=== PATIENT | female | born 1940 | race Caucasian/White ===

== ENCOUNTER 2024-02-24 15:25 | Emergency (ER) | payer SELFPAY ==
--- NOTE | ~2024-02-24 | XR_ITS ---
EXAMINATION: XR RIBS, LEFT CLINICAL INFORMATION: rib pain after fall COMPARISON: None available. TECHNIQUE: 3 views of the left ribs were obtained. FINDINGS: Lungs are clear. No consolidation, pneumothorax, or pleural effusion. The cardiomediastinal silhouette and pulmonary vasculature are normal. There appears to be a minimally displaced left third rib fracture anteriorly. XR/XR ribs LT min 3V w CXR1V IMPRESSION: There appears to be a minimally displaced left third rib fracture anteriorly. Electronically signed by: Bryson Purcell MD 02/24/2024 03:55 PM EDT
[2024-02-24 15:26] VITALS: BP 186/78; PULSE 86; RESP 20; TEMP 36.8; O2SAT 96; BMI 22.4
--- NOTE | 2024-02-24 15:28 | ED.FALL ---
HPI - Fall General Chief Complaint: Fall Stated Complaint: fall Time Seen by Provider: 02/24/24 17:24 Source: patient, family, RN notes reviewed and old records reviewed Mode of arrival: wheelchair History of Present Illness ED Provider: Gabbie Gregory PA-C [facility] Narrative: 83-year-old female with no significant past medical history presenting to the ED complaining of left anterior lateral rib/chest wall tenderness s/p mechanical trip and fall on a rug a few days ago. Denies symptoms prior to fall including lightheadedness/dizziness. Denies head trauma or LOC. Admits pain worse with deep breathing/movement. Denies anticoagulation use. Denies neck/back pain, abdominal pain, nausea/vomiting MD complaint: fall Related Data Previous Rx's ?Medication ?Instructions ?Recorded acetaminophen 500 mg tablet 500 mg PO Q6H PRN fever or pain 02/24/24 (Tylenol Extra Strength) #14 tabs lidocaine 5 % topical patch 1 patch topical DAILY PRN pain #30 02/24/24 (Lidoderm) ea Allergies Allergy/AdvReac Type Severity Reaction Status Date / Time No Known Allergies Allergy Verified 02/24/24 15:31 Review of Systems Review of Systems: Yes all other systems are reviewed and are negative Constitutional: Constitutional: Reports as per [facility] Past Medical History Attestation statement: The following information was validated with the patient. Source: old records reviewed Social History Social History Advance Directives: No Advance Directives Information Provided: No Do you have a plan to hurt others: No Plan Physical Exam Vital Signs: Vital Signs: Last Vital Signs Temp 98.2 F 02/24/24 19:04 Pulse 59 02/24/24 19:04 Resp 16 02/24/24 19:04 BP 192/73 H 02/24/24 19:04 Pulse Ox 98 02/24/24 19:04 O2 Del Method Room Air 02/24/24 19:04 BMI result Body Mass Index 22.4 Const: General: cooperative, healthy appearing and no acute distress Orientation/consciousness: patient oriented x3 Limitations: no limitations HEENT: Head: Yes normal to inspection and Yes atraumatic Ears: hearing grossly normal bilaterally General nose exam: Normal external nose present Face and sinus: Yes normal facial exam Eyes: General: appearance normal, both eyes and all related structures EOM: EOMs intact bilaterally Neck: Neck: Yes normal visual inspection and Yes no meningeal signs Chest: Other: + left anterior lateral rib tenderness to palpation. No ecchymosis/erythema. No flail chest. Chest palpation & inspection: normal inspection of the chest and no crepitus Resp: Effort & Inspection: normal respiratory effort and no respiratory distress Auscultation: clear to auscultation bilaterally Cardio: Rate: regular rate Heart sounds: S1 normal heart sound present and S2 normal heart sound present GI: Inspection: Yes normal to inspection Palpation (GI): Soft to palpation, nontender, no guarding and not rigid : General: Yes no CVA tenderness Back/Spine/Pelvis: Other: No midline cervical/thoracic/lumbar spinous tenderness/step-off or deformity Back: no CVA tenderness Skin: Rashes: no rashes Wounds: no wounds Neuro: General: patient oriented x3, tone normal and no meningeal signs Cranial nerves: Yes CN's II-XII intact bilaterally Extrem: General: Yes normal to inspection Course Course Course Narrative: This is a Rapid Medical Exam performed in triage by Gabbie Gregory PA-C. Full HPI, ROS and PE to be performed by primary ED provider. 83-year-old female presenting to the ED c/o left rib/chest wall tenderness s/p trip and fall on rug a few days ago landing on chest. Pain worse with deep inspiration.. denies head trauma or LOC. denies taking AC. denies sx prior to fall PE: + tenderness to left anterior lateral ribs/beneath breast. Abdomen soft/nontender Plan: XRs XR ribs LT min 3V w CXR1V IMPRESSION: There appears to be a minimally displaced left third rib fracture anteriorly. > patient's blood pressure notably elevated prior to discharge. States she did not take her blood pressure medication today. Likely due to pain. Results discussed with patient including worrisome signs and symptoms and strict return precautions, and when to return to the emergency department. They verbalized understanding and feel safe for discharge at this time. Medications Administered Discontinued Medications Generic Name Dose Route Start Last Admin Trade Name Freq PRN Reason Stop Dose Admin Acetaminophen 650 mg 02/24/24 17:26 02/24/24 17:37 Acetaminophen 325 Mg Tablet PO 02/24/24 17:27 650 mg ONCE ONE Administration Lidocaine 1 patch 02/24/24 17:26 02/24/24 17:38 Lidocaine 4 % Patch Adh..Patch TRANSDERMA 02/24/24 17:27 1 patch ONCE ONE Administration Protocol Medical Decision Making Medical Decision Making MDM Narrative: 83-year-old female with no significant past medical history presenting to the ED complaining of left anterior lateral rib/chest wall tenderness s/p mechanical trip and fall on a rug a few days ago. On exam vital signs stable, NAD, nontoxic appearing, physical exam as noted above with reproducible left anterior lateral rib tenderness. Abdomen soft and nontender. No midline spinous tenderness. Concern for rib fracture vs contusion. Lower suspicion for intrathoracic bleeding or liver laceration. Plan: X-ray, pain control Please refer to course for remaining clinical decision making, interpretation of labs/imaging results, and discussions with consultants and/or family members. Differential Diagnosis Differential Diagnoses: The differential diagnosis associated with the presentation includes As above Independent Interpretation I performed an independent interpretation of an: Plain X-Ray Radiology Impression Discussion of test interpretation with radiology: I have reviewed the radiologist's reading. External Record Review External record reviewed: Inpatient record, Office record, Outpatient record, Prior outpatient labs, Prior outpatient radiology, Primary care record and Outside ED record Tests considered The following testing was considered but not selected: As above Prescription Management I considered prescription management with: Pain Medication Discharge Plan Discharge Clinical Impression: Left rib fracture Patient Disposition: Home, Self-Care Instructions: Rib Fracture (ED) Additional Instructions: You have a minimally displaced left 3rd rib fracture Please use incentive spirometer at home as discussed/talk to you in the emergency department Tylenol will help with pain In addition Lidoderm patches or numbing patches, apply to painful area If you develop fever, cough, worsening chest pain or shortness of breath return to the ED Please have close follow-up with your doctor Prescriptions: New acetaminophen [Tylenol Extra Strength] 500 mg tablet 500 mg PO Q6H PRN (Reason: fever or pain) Qty: 14 0RF lidocaine [Lidoderm] 5 % adhesive patch,medicated 1 patch topical DAILY MDD remove after 12 hours PRN (Reason: pain) Qty: 30 0RF Rx Instructions: leave on most painful area for up to 12 hrs Referrals: ED Physician,Generic [Physician] - 5 days Interventions: ED Discharge Assessment Last Done: 02/24/24 19:04 Discharge Date/Time: 02/24/24 19:05 Print Language: [place]ian
[2024-02-24 17:34] VITALS: BP 210/91
[2024-02-24] MEDS: Acetaminophen 325 MG TABLET 650 MG PO (17:37)
[2024-02-24] MEDS: Lidocaine 4 % Patch ADH..PATCH 1 PATCH TRANSDERMA (17:38)
[2024-02-24 17:51] VITALS: BP 209/94; PULSE 64; RESP 16; TEMP 36.4; O2SAT 98
--- NOTE | 2024-02-24 18:07 | PC.NURSE ---
pt medicated per order for pain, pt also had IS teaching. at this time pt is hypertensive will recheck vitals shortly.
[2024-02-24 19:01] VITALS: BP 192/73
[2024-02-24 19:04] VITALS: BP 192/73; PULSE 59; RESP 16; TEMP 36.8; O2SAT 98
== END 2024-02-24 19:05 | disposition home or self-care (01) ==
PROVIDERS: Emergency Provider Emergency Medicine
DX: S22.32XA Fracture of one rib, left side, initial encounter for closed fracture (principal); W01.0XXA Fall on same level from slipping, tripping and stumbling without subsequent striking against object, initial encounter; Y93.9 Activity, unspecified; Y92.9 Unspecified place or not applicable; Y99.9 Unspecified external cause status
CPT/HCPCS: 71101; 94010; 99283